=== PATIENT | male | born 1965 | race African-American/Black ===

== ENCOUNTER 2018-06-20 07:11 | Emergency (ER) | payer SELFPAY ==
[~2018-06-20] VITALS: Ht 188 cm; Wt 102.1 kg
[2018-06-20] MEDS ORDERED: ACETAMINOPHEN/CODEINE 120-12 MG PER 5 ML LIQUID UDC ONE (07:41)
[2018-06-20] MEDS ORDERED: ACETAMINOPHEN/CODEINE 120-12 MG PER 5 ML LIQUID UDC PO ONE (07:45)
--- NOTE | 2018-06-20 08:20 | NUR ---
Pt states feeling better and pain is subsiding.
[2018-06-20 08:29] VITALS: BP 131/69
--- NOTE | 2018-06-20 08:31 | NUR ---
Patient discharged to home in stable conditon. Written and verbal after care instructions given. Patient verbalizes understanding of instructions. Pt walked out of ER w/ steady gait.
== END 2018-06-20 08:34 | disposition home or self-care (01) ==
LOC: ER 07:11
DX: S20.211A Contusion of right front wall of thorax, initial encounter (principal); W20.8XXA Other cause of strike by thrown, projected or falling object, initial encounter; Y93.89 Activity, other specified; Y92.89 Other specified places as the place of occurrence of the external cause; Y99.8 Other external cause status
CPT/HCPCS: 71046; A4663